=== PATIENT | male | born 1990 | race Two or more races ===

== ENCOUNTER 2019-11-27 02:30 | Emergency (ER) | payer OTHER ==
[~2019-11-27] VITALS: Ht 185.4 cm; Wt 78.0 kg
[2019-11-27] MEDS ORDERED: LOSARTAN POTAS100 MG (02:44)
== END 2019-11-27 18:51 | disposition home or self-care (01) ==
LOC: ER 02:30
DX: N20.1 Calculus of ureter (principal); R31.0 Gross hematuria

== ENCOUNTER 2020-04-02 20:56 | Emergency (ER) | payer OTHER ==
[~2020-04-02] VITALS: Ht 185.4 cm; Wt 82.6 kg
[~2020-04-02 20:56] MED LIST: LOSARTAN POTAS100 MG
== END 2020-04-03 11:59 | disposition home or self-care (01) ==
LOC: ER 20:56
DX: R31.0 Gross hematuria (principal); R10.11 Right upper quadrant pain

== ENCOUNTER → 2021-08-07 | Emergency (ER) | payer OTHER ==
[~2021-08-07] VITALS: Ht 188 cm; Wt 93.0 kg
[~2021-08-07] MED LIST changes: +SEMGLEE100 UNIT/1 SUBCUTANEO
== END | disposition home or self-care (01) ==
LOC: ER 17:20
DX: R10.9 Unspecified abdominal pain (principal); Z03.818 Encounter for observation for suspected exposure to other biological agents ruled out; E11.9 Type 2 diabetes mellitus without complications; I10 Essential (primary) hypertension